=== PATIENT | female | born 1990 | race Caucasian/White ===

== ENCOUNTER 2020-05-13 13:53 | Outpatient (RCR) | payer BC, SELFPAY ==
[2020-05-13 14:05] VITALS: BMI 36.1
[2020-05-13] MEDS: METHOTREXATE SODIUM/PF 50 MG/2 ML VIAL IM ×2 (15:01)
== END 2020-05-23 08:17 | disposition home or self-care (01) ==
LOC: ANHOBOP 13:53
PROVIDERS: Visit Provider Obstetrics & Gynecology
DX: O03.9 Complete or unspecified spontaneous abortion without complication (principal)
CPT/HCPCS: 96372; J9260

== ENCOUNTER 2020-05-25 13:30 | Outpatient (CLI) | payer BC, SELFPAY ==
[2020-05-25 13:58] VITALS: BMI 36.3
[2020-05-25 14:15] LABS: Hematocrit 33.6 % (37.0-47.0); Hemoglobin 11.2 g/dL (12.0-15.0); Mean Corpuscular HGB Conc 33.3 g/dl (32-36); Mean Corpuscular Hemoglobin 28.4 pg (26-34); Mean Corpuscular Volume 85.3 fl (80-100); Mean Platelet Volume 8.5 fl (7.4-10.4); Platelet Count Result 392 k/mm3 (150-375); Red Blood Count 3.94 M/mm3 (4.2-5.4); Red Cell Distribution Width 12.8 % (11.5-14.5); White Blood Count 9.5 K/mm3 (4.5-10.0)
[2020-05-25 14:27] LABS: Alanine Aminotransferase 17 U/L (4-35); Albumin Level 4.2 g/dL (3.5-5.1); Alkaline Phosphatase 65 U/L (38-126); Anion Gap 8 mmol/L (8-16); Aspartate Amino Transferase 18 U/L (14-36); Bilirubin,Total 0.3 mg/dL (0.2-1.3); Blood Urea Nitrogen 8 mg/dL (7-17); Calcium 9.1 mg/dL (8.4-10.2); Carbon Dioxide 28 mmol/L (22-30); Chloride 103 mmol/L (98-107); Estimated CRCL calculation 130 ml/min; Estimated Glomerular Filt Rate > 60; Glucose 104 mg/dL (65-105); Potassium 3.8 mmol/L (3.4-5.0); Sodium 139 mmol/L (137-145)
[2020-05-25] MEDS: METHOTREXATE SODIUM/PF 50 MG/2 ML VIAL IM ×2 (14:58→15:00)
== END 2020-05-25 13:31 | disposition home or self-care (01) ==
PROVIDERS: PCP Family Medicine; Visit Provider Obstetrics & Gynecology
DX: Z34.90 Encounter for supervision of normal pregnancy, unspecified, unspecified trimester (principal); Z3A.00 Weeks of gestation of pregnancy not specified
CPT/HCPCS: 36415; 80053; 85027; 96372; J9260

== ENCOUNTER 2020-05-28 12:00 | Outpatient (CLI) | payer BC, SELFPAY | END 2020-05-28 12:01 | disposition home or self-care (01) | LOC: ANHLAB 12:01 | PROVIDERS: PCP Family Medicine; Visit Provider Obstetrics & Gynecology | DX: O00.90 Unspecified ectopic pregnancy without intrauterine pregnancy (principal); Z3A.00 Weeks of gestation of pregnancy not specified | CPT/HCPCS: 36415; 84702 ==

== ENCOUNTER 2020-05-30 10:38 | Emergency (ER) | payer BC, SELFPAY ==
[2020-05-30] VITALS (13 sets, daily range): BP systolic 93–147; BP diastolic 43–79; PULSE 117; RESP 16; TEMP 36.7; O2SAT 94–100
--- NOTE | ~2020-05-30 | US_ITS ---
EXAMINATION: US pelvic complete w TV EXAM DATE: 05/30/2020 12:25 INDICATION: ectopic , increasing pain/bleeding. Possible ectopic . Known ectopic an d right tube, was treated in April. Now has left-sided pain. TECHNIQUE: Pelvic transabdominal and transvaginal sonogram was performed. There are multiple graysca le and Doppler images available for interpretation. Comparison is made to prior examination from 2012. FINDINGS: Uterus measures 9.8 x 5.1 x 5.6 cm, and is morphologically normal. Endometrial stripe jennifer sures 7 mm, within normal limits. There are nabothian cysts. There is no free pelvic fluid. Right adnexa: The ovary measures 2.3 x 1.8 x 1.9 cm and is morphologically normal. Ovarian vascular f low confirmed. Left adnexa: The ovary measures 3.1 x 1.9 x 2.1 cm and is morphologically normal. Ovarian vascular fl ow confirmed. IMPRESSION: 1. Unremarkable pelvic ultrasound exam. Reviewed, dictated and finalized at location B. L TECHNICIAN
--- NOTE | 2020-05-30 11:13 | ED.ABDPAIN ---
HPI - Abdominal Pain General Chief Complaint: Abdominal Pain Stated Complaint: EPTOPIC PREG FROM OB Time Seen by Provider: 05/30/20 10:49 Source: patient Mode of arrival: ambulatory Limitations: no limitations History of Present Illness HPI narrative: This is a 30 year old about 9 weeks by LMP that presents to the ER for vaginal bleeding and pelvic cramping. Reports she has received methotrexate injections for an ectopic . The last injection was on 05/25. Reports after that she started to have some spotting. Then over last weekend she started to have increasing bleeding. Reports last night and this morning she has had heavy bleeding and is having worsening pelvic pain. Also reports low back pain and pressure. Reports nausea. Denies fever or vomiting. Related Data Home Medications Medication Instructions Recorded Confirmed alprazolam 2 mg PO TID 08/15/19 08/15/19 baclofen 08/15/19 ibuprofen 200 mg PO Q6H PRN 08/15/19 08/15/19 sertraline 150 mg PO DAILY 08/15/19 08/15/19 Allergies Allergy/AdvReac Type Severity Reaction Status Date / Time sumatriptan Allergy Mild unknown Verified 08/15/19 09:55 Review of Systems Review of Systems: Narrative: CONSTITUTIONAL: Denies fever GASTROINTESTINAL: Reports abdominal/pelvic pain, nausea. Denies vomiting All systems reviewed & are unremarkable except as noted in HPI and below PMFSH Past Medical History Medical History (Updated 05/30/20 @ 13:41 by Gail Torres PA-C) Endometriosis Ovarian cyst Surgical History Surgical History (Updated 08/15/19 @ 13:14 by Matilda Mcconnell MD) History of laparoscopy Social History Social History Smoking status: Former smoker Gender identity (if verbalized by the patient): Female Exam Narrative: Exam Narrative: GENERAL: Well-appearing, well-nourished, and in no acute distress. HEAD: Normocephalic, atraumatic. EYES: EOMI. CHEST: Clear to auscultation. No respiratory distress. No wheezes rales or rhonchi HEART: Regular rate and rhythm. No murmur heard. Normal peripheral pulses. ABDOMEN: Soft, nondistended, normal active bowel sounds. Tender to palpation throughout the lower abdomen, without guarding EXTREMITIES: Normal range of motion. No edema. SKIN: Warm, dry, no rash. NEURO: No focal deficits. Alert and oriented x3. PSYCH: Normal mood and affect PELVIC: Normal-appearing cervix. Small amount of bright red blood in the vaginal vault, slowly oozing from cervix Course Vital Signs Vital signs: Vital Signs Temperature 98.0 F 05/30/20 11:05 Pulse Rate 117 H 05/30/20 11:05 Respiratory Rate 16 05/30/20 11:05 Blood Pressure 147/50 H 05/30/20 11:05 Pulse Oximetry 100 05/30/20 11:05 Temperature 98.0 F 05/30/20 11:05 Pulse Rate 117 H 05/30/20 11:05 Respiratory Rate 16 05/30/20 11:05 Blood Pressure 130/79 05/30/20 12:31 Pulse Oximetry 97 05/30/20 12:31 MDM - Abdominal Pain MDM Narrative Medical decision making narrative: Patient presents to the emergency department for pelvic pain and vaginal bleeding. Is currently being treated for an ectopic with methotrexate injections. She is afebrile and nontoxic-appearing. Tachycardic upon arrival, this normalized with IV fluids. Her blood pressure is stable. CBC with mild leukocytosis to 11.3. Her hemoglobin is stable at 11.5. Metabolic panel without concerning findings. Beta hCG is downtrending. Current level is 703.15. Pelvic ultrasound is unremarkable. No abnormal masses noted. Normal ovarian vascular flow. No free fluid in the pelvis. Patient reports improvement with IV Tylenol. Small amount of blood noted on pelvic exam. Patient is O+. Spoke with Dr. Almeida about patient and work-up. Patient is to follow-up in clinic at her next scheduled appointment. Patient is stable and felt appropriate for further outpatient evaluation. She was given warnings to return to the ER
--- NOTE | 2020-05-30 11:15 | PC.NURSE ---
patient here in ED room 11 with c/o vaginal bleeding and cramping. states she is 9 weeks but recently dx with ectopic . see triage notes. alert. oriented. reviewed hx. will start SL and get labs. in room.
[2020-05-30] MEDS: ONDANSETRON INJ 4 MG/2 ML VIAL IV PUSH (11:25)
--- NOTE | 2020-05-30 11:45 | PC.NURSE ---
patient to ultrasound via wheelchair and tech. IV tylenol on hold. zofran given.
[2020-05-30] MEDS: SODIUM CHLORIDE 0.9% IV 1,000 ML 999 ML IV CONT (12:31)
[2020-05-30 12:40] LABS: Basophils Percent Auto 0.4 % (0.2-1.2); Eosinophils Absolute Auto 0.2 K/mm3 (0-0.3); Hematocrit 35.1 % (37.0-47.0); Hemoglobin 11.5 g/dL (12.0-15.0); Immature Granulocyte Absolute 0.03 K/mm3 (0.00-0.031); Immature Granulocyte Percent A 0.3 % (0-0.5); Lymphocytes Absolute Auto 2.71 K/mm3 (0.9-3.2); Lymphocytes Percent Auto 24.1 % (18.3-44.2); Mean Corpuscular HGB Conc 32.8 g/dl (32-36); Mean Corpuscular Hemoglobin 27.8 pg (26-34); Monocytes Absolute Auto 0.4 K/mm3 (0.1-0.6); Monocytes Percent Auto 3.7 % (2.6-8.5); Neutrophils Absolute Auto 7.8 K/mm3 (1.3-6.7); Neutrophils Percent Auto 69.5 % (45.5-73.1); Platelet Count Result 415 k/mm3 (150-375); Red Blood Count 4.13 M/mm3 (4.2-5.4); Red Cell Distribution Width 12.4 % (11.5-14.5); White Blood Count 11.3 K/mm3 (4.5-10.0)
[2020-05-30 12:54] LABS: Alanine Aminotransferase 17 U/L (4-35); Albumin Level 4.3 g/dL (3.5-5.1); Alkaline Phosphatase 85 U/L (38-126); Anion Gap 7 mmol/L (8-16); Aspartate Amino Transferase 21 U/L (14-36); Bilirubin,Total 0.2 mg/dL (0.2-1.3); Blood Urea Nitrogen 9 mg/dL (7-17); Calcium 9.1 mg/dL (8.4-10.2); Carbon Dioxide 28 mmol/L (22-30); Chloride 103 mmol/L (98-107); Estimated CRCL calculation 148 ml/min; Estimated Glomerular Filt Rate > 60; Glucose 95 mg/dL (65-105); Sodium 138 mmol/L (137-145)
[2020-05-30 13:16] LABS: Prothrombin Time 14.2 Seconds (11.1-14.7)
[2020-05-30 13:17] LABS: Partial Thromboplastin Time 30.3 SECONDS (22.3-36.8)
--- NOTE | 2020-06-09 11:44 | PC.NURSE ---
LATE ENTRY This note is being entered to document information to the patient's record. The following information was omitted on [05/30/20], by [Cayla Helton RN]. NS stop time is 1330, Ofimrev stop time is 1245
== END 2020-05-30 13:56 | disposition home or self-care (01) ==
PROVIDERS: Physician Assistant; Emergency Provider Emergency Medicine; PCP Family Medicine
DX: O00.90 Unspecified ectopic pregnancy without intrauterine pregnancy (principal); Z87.891 Personal history of nicotine dependence; N80.9 Endometriosis, unspecified
CPT/HCPCS: 36415; 76830; 76856; 80053; 81025; 84702; 85025; 85461; 85610; 85730; 96361; 96365; 96375; 99284; J0131; J2405; J7030

== ENCOUNTER 2022-12-11 10:32 | Outpatient (CLI) | payer BC, SELFPAY ==
[2022-12-11 11:12] LABS: Hematocrit 36.5 % (37.0-47.0); Hemoglobin 11.8 g/dL (12.0-15.0)
== END 2022-12-11 10:33 | disposition home or self-care (01) ==
LOC: ANHLAB 10:34
PROVIDERS: PCP Family Medicine; Visit Provider Student in an Organized Health Care Education/Training Program
DX: R53.83 Other fatigue (principal)
CPT/HCPCS: 36415; 84443; 85014; 85018

== ENCOUNTER 2023-01-17 01:48 | Day surgery (SDC) | payer BC, SELFPAY ==
--- NOTE | 2023-01-16 09:49 | PM.IMHP ---
H&P: HPI History of Present Illness Date/Time: 01/16/23 09:49 Chief Complaint: pelvic pain ovarian cyst endometriosis Narrative: 32-year-old female who presents for robotic assisted exploratory laparoscopy with right ovarian cystectomy. Patient presented to the office complaining of intense pelvic pain. Patient has a long history of advanced stage endometriosis diagnosed as a teenager. Patient presented with complaints of worsening pain. Repeat ultrasound showed an enlarged right ovarian cyst suspicious for endometrioma. Patient has tried hormonal contraceptive pills in the past. Review of Systems Cardiovascular: Cardiovascular: Denies chest pain, Denies leg edema, Denies palpitations, Denies dyspnea and Denies dyspnea on exertion Respiratory: Respiratory: Denies cough, Denies dyspnea and Denies dyspnea on exertion Gastrointestinal: Gastrointestinal: Denies abdominal pain, Denies constipation, Denies diarrhea, Denies nausea and Denies vomiting Genitourinary: Genitourinary: Denies hematuria, Denies urinary frequency, Denies dysuria, Denies pelvic pain, Denies urinary incontinence and Denies vaginal discharge Neurologic: Reports system reviewed and no additional complaints, except as documented Psychiatric: Psychiatric: Reports no additional psychiatric complaints Endocrine: Endocrine: Denies palpitations PMFSH Past Medical History Medical History Ectopic Endometriosis Ovarian cyst Surgical History Surgical History History of laparoscopy Family History Family History Grandparent Breast cancer Grandparent Breast cancer Social History Social History Smoking packs per day: 0.25 Smoking cigarettes per day: 5.0 Years smoked: 10 Smoking pack-years: 2.50 Smoking status: Current every day smoker Tobacco type: cigarettes Alcohol intake: never Substance use: current Substance use type: marijuana Other substance usage details: ocassional Living arrangements: with family Additional living arrangements comments: 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 Gender identity (if verbalized by the patient): Female Sexual Orientation (if Verbalized by the Patient): Straight or Heterosexual Spiritual care concerns: No Meds Home Medications and Allergies Home Medications Medication Instructions Recorded Confirmed Type alprazolam 2 mg tablet 2 mg PO TID 08/15/19 08/20/22 History venlafaxine 225 mg tablet,extended 225 mg PO DAILY 07/04/22 08/20/22 History release 24 hr L norgest/E estradiol-E estrad 1 tablet PO DAILY #182 ea 08/23/22 08/23/22 Rx 0.15 mg-30 mcg (84)/10 mcg(7) tabs,3mos (Seasonique) elagolix 200 mg tablet (Orilissa) 200 mg PO BID #60 tabs 11/28/22 11/28/22 Rx acetaminophen 300 mg-codeine 30 mg 1 tablet PO Q6H PRN pain #10 tabs 12/25/22 Rx tablet Allergies Allergy/AdvReac Type Severity Reaction Status Date / Time sumatriptan Allergy Mild unknown Verified 11/28/22 10:31 Exam Const: General: no acute distress Eyes: EOM: EOMs intact bilaterally Neck: Neck: supple Thyroid: thyroid normal Chest: Breast/axilla inspection: normal inspection of the breasts Breast/axilla palpation: normal palpation of the breasts, normal palpation of the axillae and no axillary lymphadenopathy Resp: Effort & Inspection: normal respiratory effort Auscultation: clear to auscultation bilaterally Cardio: Rate: regular rate Rhythm: regular rhythm GI: Inspection: non-distended GI Palp: Yes Soft to palpation, No Tenderness to palpation present (GI) and No Guarding due to palpation present (GI) Auscultation: normal bowel sounds : General: No bladder normal to palpation External Fe
[2023-01-16 09:55] VITALS: BMI 33.5
--- NOTE | 2023-01-16 09:56 | PC.NURSE ---
Report to the Outpatient Waiting Room, entrance under the green pavilion located off [facility], at time 1200 on date 01/17/23. Planned Procedure Time: 1400. Time changes happen often and if your time is changed the preop area will call you the afternoon before. - You and your visitor will be asked to self-screen and do not enter if you have any COVID symptoms. - A mask is optional within the hospital at this time. Patients may have clear liquids (water, carbonated beverages, clear teas, apple juice) until 3 hours prior to surgery with a maximum of 20 ounces. - No food from midnight until time of surgery Take the following medications with a SIP of water the morning of surgery: VENLAFAXINE, CONTROL, ALPRAZOLAM IF NEEDED DO NOT STOP ANY OF YOUR OTHER PRESCRIPTION MEDICATIONS PRIOR TO SURGERY ?EXCEPT THE FOLLOWING Medications to discontinue per physician: N/A Date to take last dose: N/A Please no make-up, nail gibraltarian, hairspray, perfume, deodorant, or body powder the day of surgery. No jewelry (including any body piercings) or valuables the day of surgery, leave them at home. Please take a shower or bath the night before, or the morning of, surgery with an antibacterial soap. Wear comfortable, loose fitting clothing. - Jewelry must be removed prior to entering the operating room. Rings and piercings that are not removed may be cut off. - The hospital will not accept responsibility for valuables. - Please leave all valuables, including medications, at home the day of surgery. If you are going home after surgery, a licensed motor vehicle escort driver must drive you home. - NO public transportation without another adult if you receive anesthesia. - We recommend that an adult stay with you for 24 hours following discharge. - We also recommend that you do not drive, make important decision, drink alcoholic beverages, or take any drugs that were not prescribed by your health care provider for at least 24 hours after your discharge time. Follow any additional instructions given to you from your surgeon. If you or anyone in your household have experienced Covid symptoms in the past week, please notify your surgeon or the nurse liaison at the phone number below for possible testing. Telephone instructions given to PT - BRIGIDA MORAES and asked if any additional questions and then verbalized understanding. Patient advised to call surgeon office or pre surgery nurse liaison [phone] if any additional questions.
[2023-01-17] VITALS (8 sets, daily range): BP systolic 129–158; BP diastolic 61–92; PULSE 79–111; RESP 12–18; TEMP 36.6–38.1; O2SAT 94–100
[2023-01-17 12:53] LABS: Hematocrit 39.3 % (37.0-47.0); Hemoglobin 12.9 g/dL (12.0-15.0); Mean Corpuscular HGB Conc 32.8 g/dl (32-36); Mean Corpuscular Hemoglobin 28.1 pg (26-34); Mean Corpuscular Volume 85.6 fl (80-100); Mean Platelet Volume 8.9 fl (7.4-10.4); Platelet Count Result 471 k/mm3 (150-375); Red Blood Count 4.59 M/mm3 (4.2-5.4); Red Cell Distribution Width 13.8 % (11.5-14.5)
[2023-01-17] MEDS: ACETAMINOPHEN 500 MG TABLET 1000 MG PO (12:55)
[2023-01-17] MEDS: KETOROLAC 15 MG/ML VIAL (*BKC) IV PUSH (12:55)
--- NOTE | 2023-01-17 13:33 | WPDANESEPPF ---
Anes - Initial Pre Proc Eval Procedure: Operation Date: 01/17/23 14:00 Proposed Procedures p Robotic Assisted Right Ovarian Cystectomy - David Joyner MD Date/Time: 01/17/23 13:33 Surgeon: David Joyner MD Pre Op Diagnosis: endometrioma Patient Data Age: 32 Gender: F Height: 1.63 m Weight: 84 kg Last Vital Signs Temp 36.6 C 01/17/23 13:01 Pulse 92 01/17/23 13:01 Resp 14 01/17/23 13:01 BP 143/91 H 01/17/23 13:01 Pulse Ox 100 01/17/23 13:01 O2 Del Method Room Air 01/17/23 13:01 Allergies Allergy/AdvReac Type Severity Reaction Status Date / Time sumatriptan Allergy Mild unknown Verified 01/17/23 13:06 Home Medications Medication Instructions Recorded Confirmed Type alprazolam 2 mg tablet 2 mg PO TID 08/15/19 01/16/23 History venlafaxine 225 mg tablet,extended 225 mg PO DAILY 07/04/22 01/17/23 History release 24 hr L norgest/E estradiol-E estrad 1 tablet PO DAILY #182 ea 08/23/22 01/17/23 Rx 0.15 mg-30 mcg (84)/10 mcg(7) tabs,3mos (Seasonique) Tylenol 325 mg PO DAILY 01/17/23 01/17/23 History Laboratory Tests 01/17/23 12:47 WBC 10.0 K/mm3 (4.5-10.0) RBC 4.59 M/mm3 (4.2-5.4) Hgb 12.9 g/dL (12.0-15.0) Hct 39.3 % (37.0-47.0) MCV 85.6 fl (80-100) MCH 28.1 pg (26-34) MCHC 32.8 g/dl (32-36) RDW 13.8 % (11.5-14.5) Plt Count 471 H k/mm3 (150-375) MPV 8.9 fl (7.4-10.4) Patient hx anesthesia problems: none Family hx anesthesia problems: none Results Review: All pre-operative results and documents have been reviewed as part of the pre-operative evaluation. [facility] Past Medical History Medical History Ectopic Endometriosis Ovarian cyst Surgical History Surgical History History of laparoscopy Family History Family History Grandparent Breast cancer Grandparent Breast cancer Social History Social History Smoking packs per day: 0.25 Smoking cigarettes per day: 5.0 Years smoked: 10 Smoking pack-years: 2.50 Smoking status: Current every day smoker Tobacco type: cigarettes Alcohol intake: never Substance use: current Substance use type: marijuana Other substance usage details: ocassional Living arrangements: with family Additional living arrangements comments: 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 Gender identity (if verbalized by the patient): Female Sexual Orientation (if Verbalized by the Patient): Straight or Heterosexual Spiritual care concerns: No Anes - Eval Final PreProcedure Day of Procedure 01/17/23 13:33 Patient weight: obese Heart: regular rate and rhythm Lungs: clear to auscultation Airway: Mallampati scale class II Neurological: alert and oriented Last oral intake: >/= 8 hours ASA classification: II Emergent: no Anesthetic plan: proceed Anesthesia type and monitoring: general ETT and standard monitoring Results Review: All pre-operative results and documents have been reviewed as part of the pre-operative evaluation. Informed Consent: The patient's anesthetic plan and its attendant risks and benefits were discussed with the patient/family/POA. Questions were solicited and answers provided to the satisfaction of the patient/family/POA.
--- NOTE | 2023-01-17 13:53 | WPDHPUPDATE1 ---
History and Physical Update Update Date/Time: 01/17/23 13:53 History and Physical has been reviewed, including an updated exam of the patient. There are NO changes in the patient's condition. Risks, benefits, and alternatives have been discussed and questions answered. Patient agrees to proceed with procedure.
[2023-01-17] MEDS: LIDO 1%/EPINEPHRINE 1:100,000 20 ML VIAL INFILTRATE (15:12)
--- NOTE | 2023-01-17 15:42 | W.PM.PROC2 ---
Procedure Note - Detailed Date of Procedure 01/17/23 Pre-op Diagnosis endometrioma Post-op Diagnosis Same Procedure Performed Diagnostic laparoscopy, robotic assisted right ovarian cystectomy, lysis of adhesions Surgeon David Joyner MD Anesthesia General Indications pelvic pain history of endometriosis, right ovarian cyst, suspicious for endometrial Findings dense adhesive disease in the posterior cul-de-sac, and hence of disease between the bowel omentum and the left lateral pelvic sidewall normal. Fallopian tubes bilaterally, enlarged right ovary with dark blood-filled cyst consistent with endometrioma Description of Procedure After the patient was appropriately consented she was taken to the operating room where she was transferred to the table in a dorsal supine position. General anesthesia was then induced with endotracheal intubation. The patient was transferred to a dorsal lithotomy position using adjustable yellow-fin stirrups. Her position was adjusted for appropriate support of her lower back and lower extremities. The patient was prepped and draped. A transurethral carlos catheter was place. The cervix was visualized and an acorn manipulator was placed. Gloves were changed. After confirmation of a functioning orogastric tube, lidocaine was injected at Carroll's point in the LUQ and a 5mm incision was made. A 5mm Optiview trocar was then inserted into the abdominal cavity under direct visualization and done so without complication. The abdomen was then insufflated with approximately 2-3L of CO2 establishing a pneumoperitoneum and the patient was placed in Trendelenburg position. A pelvic survey was performed and the above findings were noted. Given the degree of adhesive disease, the decision was made to proceed to robotic assisted surgery. Just above the umbilicus in the midline, a 8mm incision made after injection of lidocaine and a 8mm bladeless trocar advanced into the abdominal cavity under direct visualization without incident. We subsequently placed two robotic ports in a similar fashion, one in the left mid-quadrant and one in the right, 10cm lateral to the midline port. The robot was then docked. Attention was turned to the pelvis. the uterus was anteverted to reveal the dense amount of adhesions in the posterior cul-de-sac. Colon was noted to be adherent to the posterior serosa of the uterus. This adhesion was gently taken down with blunt and sharp dissection the right ovary was not visualized. The ovary was adherent and the right ovarian fossa and to the posterior uterine serosa. Adhesions surrounding the ovary were dissected to help free the ovary. During dissection of the ovary, the ovarian cyst was ruptured revealing a dark brown sanguinous fluid. Ovarian cyst was further opened. Fluid was irrigated from the cyst. The cyst bed was identified and the cyst wall was grasped. The cyst wall was removed with gentle pressure at opposite traction. The surgical bed was then made hemostatic with monopolar Cautery. Small amount of adhesions were freed from the left ovary from the posterior uterine serosa to help restore normal anatomy. adhesive disease was noted to be dense and the posterior cul-de-sac near the cervical os. Surgical bed was again re-evaluated and noted to be hemostatic. Several photos were taken of the adhesive disease within the pelvis. Following this dissection, the abdomen and pelvis were copiously irrigated and all surgical sites found to be hemostatic. Skin sites were reapproximated with 4-0 Vicryl in a subcuticular fashion. Steri-Strips were placed. The patient tolerated the procedure well. Sponge, needle and instrument counts were correct x 2 and the patient was taken to recovery in stable condition. The patient had SCD's on for VTE prophylaxis during the entire procedure. Estimated Blood Loss 10 Urine Output 25 Drains No Packing No Pathology Yes ( Ovarian cyst wall) Complications No immediat
[2023-01-17] MEDS: LACTATED RINGERS 1,000 ML 30 ML IV CONT ×2 (15:47→16:05)
[2023-01-17] MEDS: fentaNYL CITRATE INJ (*CRX) 100 MCG/2 ML VIAL 25 MCG IV PUSH ×4 (15:55→16:07)
[2023-01-17] MEDS: oxyCODONE HCL (*CRX) 5 MG TAB IR PO (16:59)
== END 2023-01-17 17:45 | disposition home or self-care (01) ==
PROVIDERS: PCP Family Medicine; Visit Provider Student in an Organized Health Care Education/Training Program
PROC: 8E0W4CZ Robotic Assisted Procedure of Trunk Region, Percutaneous Endoscopic Approach (ICD-10-PCS; CPT 49320; principal; 2023-01-17 14:00)
DX: N83.201 Unspecified ovarian cyst, right side (principal); N73.6 Female pelvic peritoneal adhesions (postinfective); R10.2 Pelvic and perineal pain; F17.210 Nicotine dependence, cigarettes, uncomplicated; F12.90 Cannabis use, unspecified, uncomplicated; E66.9 Obesity, unspecified; Z68.31 Body mass index [BMI] 31.0-31.9, adult; Z87.898 Personal history of other specified conditions
CPT/HCPCS: 58662; S2900; 36415; 85027; 86850; 86900; 86901; 88305; A9270; J0690; J1100; J1170; J1885; J2250; J2405; J2704; J2710; J3010; J7030; J7120

== ENCOUNTER 2024-12-09 10:45 | Outpatient (CLI) | payer OTHER, SELFPAY ==
--- NOTE | ~2024-12-09 | MMUS_ITS ---
EXAMINATION: US breast BI complete, MM diagnostic leonid BI w amy HISTORY: Follow-up breast mass TECHNIQUE: Additional 3-D tomosynthesis images of the breasts were performed and synthetic 2-D images were generated. CAD analysis was submitted and interpreted. High resolution bilateral complete breas t ultrasound was performed. COMPARISON: None Comparison to multiple prior studies sequentially, with oldest reviewed study dated 01/08/2022. BREAST PARENCHYMAL COMPOSITION: Dense: The breasts are heterogeneously dense, which may obscure small masses FINDINGS: MAMMOGRAPHIC FINDINGS: The breasts are stable. No new masses, calcifications or architectural distortion in either breast to suggest malignancy. There is a fat-containing mass in the mid outer aspect of the left breast, middl e third, most likely benign fibroadenolipoma. ULTRASOUND: Complete US of all 4 quadrants of the breast/s and retroareolar region was reviewed. Right breast: There is a right breast cyst at 12:00 near the nipple measuring 1.6 cm. Left breast: At 12:00 near the nipple there is a 7 mm cyst. At 3:00, 4 cm from the nipple there is a complex parallel oriented heterogeneous mass measuring 5.2 x 6 x 1.9 cm, corresponding to the fat-con taining mass seen on mammography. IMPRESSION: 1. 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 No evidence for malignancy in the right breast. 2. Recommend 6 month follow-up Limited left breast ultrasound. BI-RADS category 3, probably benign findings. Reviewed, dictated and finalized at location A. IMPRESSION: 1. 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 No evidence for malignancy in the right breast. 2. Recommend 6 month follow-up Limited left breast ultrasound. BI-RADS category 3, probably benign findings.
--- OUTSIDE RECORDS SUMMARY | 2024-12-09 11:05 | XMS_ITS | Encounter Summary ---
Author Organization [facility] Address [address] [place] [address] Phone Care Team Providers Care Attendance Secretary Name Role Phone Tessie Short MD Primary Care Provider + Encounter Details Date Type Department Care Team (Late st Contact Info) Description 02/29/2020 Telephone [facility] [address] [place] [address] [facility] 5[address] [place] [address] [place] [address] Yue aJcobs Social History Tobacco Use Types Packs/Day Years Used Date Smoking Tobacco: Former Cigarettes Q uit: 07/2018 Smokeless Tobacco: Never Alcohol Use Standard Drinks/Week Comments Not Currently 0 (1 standard drink = 0.6 oz pur e alcohol) Comments No Sex and Gender Information Value Date Recorded Sex Assigned at Not on file 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
--- OUTSIDE RECORDS SUMMARY | 2024-12-09 11:05 | XMS_ITS | Referral Summary ---
Author Organization [facility] Address [address] [place] [address] Care Team Providers Care Burial Agent Name Role Phone Tessie Short MD Primary Care Provider + Allergies Active Allergy Reactions Criticality Noted Date Comments Sumatriptan Other (See comments) Low 02/27/2019 Medications ALPRAZolam (XANAX) 2 mg tablet Take 1 tablet (2 mg total) by mouth nightly as needed for anxiety Active ondansetron ODT (ZOFRAN-ODT) 4 mg disintegrating tablet Dissolve 1 tablet for mild to moderate nausea or vomiting or 2 tablets for severe nausea or vomiting oral twice a day as needed. 15 tablet 04/03/20 18 Active Additional Information Patient not taking.Reported on 02/27/2019 albuterol HFA (PROVENTIL HFA,VENTOLIN HFA,PROAIR HFA) 90 mcg/actuation inhaler TAKE 2 PUFFS BY MOUTH EVERY 4 HOURS 11 02/13/20 19 Active traMADoL (ULTRAM) 50 mg tablet 0 08/27/19 20 Active sertraline (ZOLOFT) 100 mg tablet TAKE 1 AND 1/2 TABLETS BY MOUTH ONCE DAILY 09/05/19 20 Active acetaminophen-code ine (TYLENOL with CODEINE #3) 300-30 mg per tablet acetaminophen 300 mg-codeine 30 mg tablet Active ibuprofen (ADVIL,MOTRIN) 800 mg tablet Take 1 tablet (800 mg total) by mouth every 6 (six) hours as needed for pain Active DULoxetine DR (CYMBALTA) 30 mg capsule Take by mouth daily 09/29/19 Active acetaminophen 500 mg capsule Take 2 capsules (1,000 mg total) by mouth every 6 (six) hours as needed for mild pain (pain scale 1-4) Active Active Problems Problem Noted Date Diagnosed Date Stress incontinence, female 10/26/2022 Overview (10/26/2022): Reports leaking of urine with cough, laugh, sneeze Consider UG referral +/- sling at time of surgery Pelvic floor dysfunction in female 10/26/2022 Overview (10/26/2022): 10/26/22: Severe PFMD on exam (bilateral OI and LA) that reproduces some of patient's pain, but not all Plan - Vaginal icing, referral to PFPT, and robaxin as per endo plan Abnormal uterine bleeding 10/05/2016 Endometriosis 10/05/2016 Overview (11/02/2022): Images from the original note were not included. History - Diagnosed with endometriosis in 2008 at [facility] by Dx lsc and treated with course of Lupron - MRI Pelvis 2016: No pelvic endo seen, small para-ovarian cyst and ?cervical adenomyoma - Presenting with severe dysmenorrhea, dyspareunia, and dyschezia since 2019 and getting worse - Reports US with primary DIRECTOR CLINICAL PHARMACOLOGY showing chocolate cyst on right ovary, referred to [facility] given anticipated surgical complexity and insurance change - Desiring surgical management, no plans for future fertiltiy but not ready for BSO - Current regimen: COCs (Seasonique) Records Review 10/26/22: Severe PFMD on exam. Patient with voluntary guarding and unable to assess mobility of pelvic structures. Adnexal mass not palpable. No CMT. Rectovaginal septum clear. Given report of severe dyschezia, suspicion high for rectal endometriosis given history as above. Recommend referral to [facility] when insurance active. Plan - Agree with continuous COCs - Add robaxin for pelvic pain control - Re-refer to PFPT, add vaginal icing - Request outside records from: [facility] (op note), Dr. Joyner (pelvic US), PCP (pap smear) - Defer additional imaging at this time given patient is uninsured, will obtain with financial assistance or insurance is active - Patient will call clinic with insurance active, and will refer to [facility] for surgical consultation at that time Social History Tobacco Use Types Packs/Day Years Used Date Smoking Tobacco: Former Cigarettes Q uit: 07/2018 Smokeless Tobacco: Never Alcohol Use Standard Drinks/Week Comments Not Currently 0 (1 standard drink = 0.6 oz pur e alcohol) AUDIT-C Answer Date Recorded Q1: How often do you have a drink containing alcohol? Never 10/26/2022 Q2: How many drinks containi ng alcohol do you have on a typical day when you are drinking? Patient does not drink Q3: How often do you have si x or more drinks on one occasion? Never 10/26/2022 Hunger Vital Sign Answer Date Recorded Within the past 12 months, y ou worried that your food would run out before you got the money to buy more. Never true 10/27/19 23 Within the past 12 months, t he food you bought just didn't last and you didn't have money to get more. 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[employer] Gender Identity Not on file Sexual Orientation Not on file Last Filed Vital Signs Vital Sign Reading Time Taken Comments Blood Pressure 149/79 10/26/2022 10:14 AM CDT Pulse 91 10/26/2022 10:14 AM CDT Temperature 36.6 C (97.9 F) 10/26/2022 10:14 AM CDT Respiratory Rate 18 10/26/2022 10:14 AM CDT Oxygen Saturation 98% 10/26/2022 10:14 AM CDT Inhaled Oxygen Concentration - - Weight 88 kg (194 lb) 10/26/2022 10:14 AM CDT Height 162.6 cm (5' 4 ) 10/26/2022 10:14 AM CDT Body Mass Index 33.3 10/26/2022 10:14 AM CDT Plan of Treatment Not on file Insurance [facility] CHOICE PLUS [facility] H[facility]/PPO Address: [address] [address] [place] [address] [employer] OPEN ACCESS [employer] PPO POS Care Teams Burial Agent Relationship Specialty Start Date End Date Tessie Short MD PCP - General 04/03/18
--- OUTSIDE RECORDS SUMMARY | 2024-12-09 11:05 | XMS_ITS | Encounter Summary ---
Author Organization [facility] Address [address] [place] [address] Care Team Providers Care Wrapper Stemmer Hand Name Role Phone Charla Amezquita PA-C Primary Care Provider [phone] Tessie Short MD Primary Care Provider [phone] Reason for Visit * Reason Onset Date Comments Health Information 05/08/2023 Encounter Details Date Type Department Care Team (Late st Contact Info) Description 05/08/2023 Telephone [facility] - CRIME ANALYST [address] [place] [address] Kelly French MD [address] [facility] [address] [place] [address] Health Information Social History Tobacco Use Types Packs/Day Years Used Date Smoking Tobacco: Former Smokeless Tobacco: Never Comments No Sex and Gender Information Value Date Recorded Sex Assigned at Not on file Legal Sex Female 4:29 PM CDT Gender Identity Not on file Sexual Orientation Not on file documented as of this encounter Miscellaneous Notes * Telephone Encounter - Sommer Spicer RN - 05/08/2023 1:23 PM CDT RN returned call to [facility]. RN spoke to Dana. Dr. Joyner and office. They referred pt to our office in January and they need OV notes to tie to that referral. RN faxed as requested * Telephone Encounter - Liset Daniels - 05/08/2023 12:57 PM CDT Dana from Dr Barcenas called because they are wanting the patient consult notes so they can tie itto the referral. Thank you Liset CB: [phone] documented in this encounter Plan of Treatment Not on file documented as of this encounter Visit Diagnoses Not on filedocumented in this encounter Care Teams Wrapper Stemmer Hand Relationship Specialty Start Date End Date Charla Amezquita PA-C [address] [place] [address] PCP - General Physician Veterinary Practitioner 03/07/23 09/26/23 Tessie Short MD [address] [place] [phone] PCP - General Family Medicine 09/27/23 documented as of this encounter
--- OUTSIDE RECORDS SUMMARY | 2024-12-09 11:05 | XMS_ITS | Encounter Summary ---
Author Organization [facility] Address [address] [place] [address] Care Team Providers Care Summer Child Caregiver Name Role Phone Tessie Short MD Primary Care Provider [phone] Reason for Visit * Reason Onset Date Comments Med Question 12/25/2023 Encounter Details Date Type Department Care Team (Late st Contact Info) Description 12/25/2023 Telephone [facility] - ANNEALING TORCH OPERATOR [address] [facility] [address] [place] [address] Adriana Valentino Med Question Social History Tobacco Use Types Packs/Day Years Used Date Smoking Tobacco: Some Days Cigarettes Smokeless Tobacco: Never Alcohol Use Standard Drinks/Week Comments Not Currently 0 (1 standard drink = 0.6 oz pur e alcohol) AUDIT-C Answer Date Recorded Q1: How often do you have a drink containing alcohol? Never 12/24/2023 Q2: How many drinks containi ng alcohol do you have on a typical day when you are drinking? Patient does not drink Q3: How often do you have si x or more drinks on one occasion? Never 12/24/2023 Comments No Sex and Gender Information Value Date Recorded Sex Assigned at Not on file Legal Sex Female 4:29 PM CDT Gender Identity Not on file Sexual Orientation Not on file documented as of this encounter Miscellaneous Notes * Telephone Encounter - Sommer Spicer RN - 12/25/2023 12:08 PM CDT RN called pt to see if she picked up meds. Pt said she called them and they are getting ready for her now. She will call RN back if any issues * Telephone Encounter - Sommer Spicer RN - 12/25/2023 9:55 AM CDT RN called [facility] and spoke to tech. Per tech the oxycodone rx was sent yesterday. She is unsure why is wasn't filled. They will work on this now and will be ready in hour and half RN called pt to make aware. * Telephone Encounter - Adriana Valentino - 12/25/2023 9:32 AM CDT PT called stating that she did not get her Oxycodone RX called into the pharmacy. She double checked with the pharmacy this am and it is not their system. C/B [phone] documented in this encounter Plan of Treatment Not on file documented as of this encounter Visit Diagnoses Not on filedocumented in this encounter Care Teams Summer Child Caregiver Relationship Specialty Start Date End Date Tessie Short MD [address] [place] [id number] PCP - General Family Medicine 09/27/23 documented as of this encounter
--- OUTSIDE RECORDS SUMMARY | 2024-12-09 11:05 | XMS_ITS | Clinical Summary ---
Author Organization [facility] Address [address] [place] [address] Care Team Providers Care Chief Meteorologist Name Role Phone Tessie Short MD Primary Care Provider [phone] Source Comments [facility],non-owned Affiliates and Associated Physician Practices is amultiple site organization consisting of ambulatory clinics and hospital sitesin [place], [place], [place] and [place]. This disclosure is being madepursuant to the Care Everywhere program and may not contain all information available regarding this patient. Last updated 18.[facility] Allergies Active Allergy Reactions Criticality Noted Date Comments Sumatriptan Palpitations 04/24/2023 Medications * Be aware that medications may not be up to date on this document. Alwaysverify current medications with the patient. venlafaxine XR 24hr (Effexor XR) 150 MG capsule TAKE 1 CAPSULE BY MOUTH EVERY DAY ALONG WITH 75MG CAPSULE 04/03/2023 Active venlafaxine XR 24hr (Effexor XR) 75 MG capsule TAKE ONE CAPSULE BY MOUTH EVERY DAY WITH 150MG 03/29/2023 Active ALPRAZolam (Xanax) 2 MG tablet Take 1 (one) tablet by mouth 3 times daily as needed Active hydrOXYzine HCl (Atarax) 50 MG tablet Take 1 (one) tablet by mouth 3 times daily 06/27/2023 Active meloxicam (Mobic) 7.5 MG tablet Take 1 (one) tablet by mouth once daily 30 tablet 11 09/27/2023 Active Simpesse 0.15-0.03 &0.01 MG tabletIndication s:Endometriosis Take 1 (one) tablet by mouth once daily 84 tablet 12/17/2023 Active oxyCODONE, immediate release, (Roxicodone) 5 MG tabletIndication s:Pelvic floor dysfunction in female Take 1 (one) tablet by mouth every 4 hours as needed for Pain 12 tablet 12/24/2023 Active ketorolac (Toradol) 10 MG tablet Take 1 (one) tablet by mouth every 8 hours as needed for Pain 15 tablet 02/19/2024 Active methocarbamol (Robaxin) 500 MG tablet Take 2 (two) tablets by mouth every 8 hours as needed for Muscle Spasms 30 tablet 2 07/15/2024 Active Active Problems Problem Noted Date Diagnosed Date Pelvic floor dysfunction in female 10/26/2022 09/27/2023 Overview (09/27/2023): 10/26/22: Severe PFMD on exam (bilateral OI and LA) that reproduces some of patient's pain, but not all Plan - Vaginal icing, referral to PFPT, and robaxin as per endo plan Stress incontinence, female 10/26/2022 03/0 07/2023 Overview (09/27/2023): Reports leaking of urine with cough, laugh, sneeze Consider UG referral +/- sling at time of surgery Abnormal uterine bleeding 10/05/20162023 Endometriosis 10/05/2016 09/27/2023 Overview (09/27/2023): Images from the original note were not included. History - Diagnosed with endometriosis in 2008 at [facility] by Dx lsc and treated with course of Lupron - MRI Pelvis 2017: No pelvic endo seen, small para-ovarian cyst and ?cervical adenomyoma - Presenting with severe dysmenorrhea, dyspareunia, and dyschezia since 2019 and getting worse - Reports US with primary BRICK CARRIER showing chocolate cyst on right ovary, referred to [facility] given anticipated surgical complexity and insurance change [...] given history as above. Recommend referral to [facility] when insurance active. Plan - Agree with continuous COCs - Add robaxin for pelvic pain control - Re-refer to PFPT, add vaginal icing - Request outside records from: [facility] (op note), Dr. Joyner (pelvic US), PCP (pap smear) - Defer additional imaging at this time given patient is uninsured, will obtain with financial assistance or insurance is active - Patient will call clinic with insurance active, and will refer to [facility] for surgical consultation at that time Immunizations Immunization Administration Dates Next Due FLU VACCINE TRI IIV3 SPLIT IM (FLUVIRIN) 015 INFLUENZA VACCINE, QUADR. (A FLURIA, FLUZONE QUADRIVALENT; 6MO+) (IIV4) 06/25/2016,05/29/2016 Social History Tobacco Use Types Packs/Day Years Used Date Smoking Tobacco: Some Days Cigarettes Smokeless Tobacco: Never Tobacco Cessation:Ready to Q uit: Not Asked; Counseling Given: Not Answered Alcohol Use Standard Drinks/Week Comments Not Currently 0 (1 standard drink = 0.6 oz pur e alcohol) AUDIT-C Answer Date Recorded Q1: How often do you have a drink containing alcohol? Never 03/15/2024 Q2: How many drinks containi ng alcohol do you have on a typical day when you are drinking? Patient does not drink Q3: How often do you have si x or more drinks on one occasion? Never 03/15/2024 PHQ-2 Answer Date Recorded Patient Health Questionnaire-2 Score 3 01/07/2024 Comments No Sex and Gender Information Value Date Recorded Sex Assigned at Not on file Legal Sex Female 4:29 PM CDT Gender Identity Not on file Sexual Orientation Not on file Last Filed Vital Signs Vital Sign Reading Time Taken Comments Blood Pressure 118/78 03/19/2024 2:43 PM CDT Pulse 93 03/15/2024 8:47 AM CDT Temperature 37.3 C (99.1 F) 03/15/2024 8:47 AM CDT Respiratory Rate 14 03/15/2024 11:18 AM CDT Oxygen Saturation 99% 03/15/2024 11:18 AM CDT Inhaled Oxygen Concentration - - Weight 86.6 kg (191 lb) 03/19/2024 2:43 PM CDT Height 162.6 cm (5' 4 ) 03/23/2024 11:38 AM CDT Body Mass Index 32.79 03/19/2024 2:43 PM CDT Plan of Treatment Health Maintenance Due Date Last Done Comments HIV SCREENING 02/09/2004 HEPATITIS C SCREENING 02/04/2007 DTAP/TDAP/TD VACCINES (1 - Tdap) 02/09/2008 HEPATITIS B VACCINE (1 of 3 - 19+ 3-dose series) 02/09/2008 PNEUMOCOCCAL VACCINE (1 of 2 - PCV) 02/09/2008 COVID-19 VACCINE (4 - 2023-2 5 season) 2024 09/11/2021, 12/27/2020, 12/06/2020 DEPRESSION SCREENING 07/29/2024 INFLUENZA VACCINE (Season Ended) 2025 06/25/2016, 05/29/2016, 08/13/2014 ZOSTER VACCINE (1 of 2) 2039 HIB VACCINE Aged Out No longer eligi ble based on patient's age to complete this topic HPV VACCINE Aged Out No longer eligi ble based on patient's age to complete this topic MENINGOCOCCAL (Group B) VACCINE SHARED DECISION-MAKING Aged Out No longer eligible based on patient's age to complete this topic MENINGOCOCCAL GROUPS A/C/Y/W VACCINE Aged Out No longer eligible b ased on patient's age to complete this topic Insurance MEDICAID - [place] Care Teams Chief Meteorologist Relationship Specialty Start Date End Date Tessie Short MD [address] [place] [id number] PCP - General Family Medicine 09/27/23
--- OUTSIDE RECORDS SUMMARY | 2024-12-09 11:05 | XMS_ITS | Encounter Summary ---
Author Organization [facility] Address [address] [place] [address] Phone Care Team Providers Care Entry Level Truck Driver Name Role Phone Tessie Short MD Primary Care Provider + Encounter Details Date Type Department Care Team (Late st Contact Info) Description 03/07/2020 Telephone [facility] Surgery [address] [place] [address] [facility] 5[address] [place] [address] [place] [address] Yue Jacobs Social History Tobacco Use Types Packs/Day Years Used Date Smoking Tobacco: Former Cigarettes Q uit: 07/2018 Smokeless Tobacco: Never Alcohol Use Standard Drinks/Week Comments Not Currently 0 (1 standard drink = 0.6 oz pur e alcohol) Comments No Sex and Gender Information Value Date Recorded Sex Assigned at Not on file 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
--- OUTSIDE RECORDS SUMMARY | 2024-12-09 11:05 | XMS_ITS | Clinical Summary ---
Author Organization [facility] Address [address] [place] [address] Care Team Providers Care Paint Grinder Name Role Phone Tessie Short MD Primary [...] - Diagnosed with endometriosis in 2008 at [facility] by Dx lsc and treated with course of Lupron - MRI Pelvis 2016: No pelvic endo seen, small para-ovarian cyst and ?cervical adenomyoma - Presenting with severe dysmenorrhea, dyspareunia, and dyschezia since 2019 and getting worse - Reports US with primary NUCLEAR CHEMISTRY TECHNICIAN showing chocolate cyst on right ovary, referred to [facility] given anticipated surgical complexity and insurance change [...] vaginal icing - Request outside records from: [facility] (op note), Dr. Joyner (pelvic US), PCP (pap smear) - Defer additional imaging at this time given patient is uninsured, will obtain with financial assistance or insurance is active - Patient will call clinic with insurance active, and will refer to [facility] for surgical consultation at that time Surgical History Surgery Date Site/Laterality Comments LAPAROSCOPY FOR ECTOPIC 07/29/2019 - 07/28/2020 Left Reports ruptured left ectopic s/p laparoscopy DIAGNOSTIC LAPAROSCOPY 07/29/2008 - 07/28/2009 At [facility], reports was told she had diffuse endo on colon, bladder, etc. but endo resection not performed Medical History Medical History Date Comments Endometriosis DANK (generalized anxiety disorder) Family History Medical History Relation Name Comments Cancer Father's Brother Cancer Father's Sister Cancer Maternal Grandmother Cystic fibrosis Maternal Grandmother Endometriosis Maternal Grandmother Gallbladder disease Maternal Grandmother Glaucoma Maternal Grandmother Hypertension Maternal Grandmother Cystic fibrosis Mother Endometriosis Mother Heart disease Mother Diabetes Other maternal side Heart disease Other paternal side of faiily Mental illness Other maternal and paternal sides Obesity Other maternal and pa ternal sides of family Cancer Paternal Grandmother Relation Name Status Comments Father's Brother Father's Sister Maternal Grandmother Mother Other Paternal Grandmother Social History Tobacco Use Types Packs/Day Years [...] on file Legal Sex 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 Gender Identity Not on file Sexual Orientation Not on file Obstetrics History Para Term AB IAB SAB Ectopic Multiple Livin g Live Births 3 1 1 2 1 1 1 1 Date Outcome GA Total Labor Labor/2nd/3rd Weight Sex Type Anes PTL Yuridia A1 A5 Name Clin 2012 Term Vag-Sp ont Livin g Complications:Pre eclampsia 2018 SAB SAB 2019 Ectopic ECTOPI C Comments Patient reports multiple ch emical pregnancies as well, but did not require treatment Last Filed Vital Signs Vital Sign Reading [...] 10/26/2022 10:14 AM CDT Plan of Treatment Health Maintenance Due Date Last Done Comments Cervical Cancer Screening 1989 Depression Screening 1989 Hepatitis C Screening 1989 DTaP/Tdap/Td Vaccine (1 - Tdap) 02/09/2000 Varicella Vaccines (1 of 2 - 13+ 2-dose series) 2002 Hepatitis B Screening 2007 Regular Well Visit/Exam 18-64 2007 Influenza Vaccine (Season Ended) 2025 06/25/2016, 05/29/2016, 08/13/2014 HPV Vaccines Aged Out No longer eligi ble based on patient's age to complete this topic Pneumococcal vaccine <65 Aged Out No longer eligible based on patient's age to complete this topic Insurance [facility] CHOICE PLUS [employer] OPEN ACCESS [employer] PPO POS Care Teams Paint Grinder Relationship Specialty Start Date End Date Tessie Short MD PCP - General 04/03/18
--- OUTSIDE RECORDS SUMMARY | 2024-12-09 11:05 | XMS_ITS | Encounter Summary ---
Author Organization [facility] Address [address] [place] [address] Care Team Providers Care Foot Specialist Name Role Phone Charla Amezquita PA-C Primary Care Provider [phone] Tessie Short MD Primary Care Provider [phone] Reason for Visit * Reason Onset Date Comments Question 04/30/2023 Encounter Details Date Type Department Care Team (Late st Contact Info) Description 04/30/2023 Telephone [facility] FLOOR [address] [facility] [address] [place] [address] Kelly French MD [address] [facility] [address] [place] [address] Question Social History Tobacco Use Types Packs/Day Years Used Date Smoking Tobacco: Former Smokeless Tobacco: Never Comments No Sex and Gender Information Value Date Recorded Sex Assigned at Not on file Legal Sex Female 4:29 PM CDT Gender Identity Not on file Sexual Orientation Not on file documented as of this encounter Miscellaneous Notes * Telephone Encounter - Michelle Ann RN - 04/30/2023 9:46 AM CDT RN attempted to return patient call. No answer, left VM. RN can see that we received a botox denialon 04/26, appeal information was faxed on 04/29, will send message to patient. * Telephone Encounter - AlokNeptalita - 04/30/2023 9:33 AM CDT Pt says she got approval call from her insurance co regarding botox but received a call form us saying that she was denied Please conform this with pt CB# [phone] documented in this encounter Plan of Treatment Not on file documented as of this encounter Visit Diagnoses Not on filedocumented in this encounter Care Teams Foot Specialist Relationship Specialty Start Date End Date Charla Amezquita PA-C [address] [place] [phone] PCP - General Physician Supervisor [employer] 03/07/23 09/26/23 Tessie Short MD [address] [place] [phone] PCP - General Family Medicine 09/27/23 documented as of this encounter
--- OUTSIDE RECORDS SUMMARY | 2024-12-09 11:05 | XMS_ITS | Encounter Summary ---
Author Organization [facility] Address [address] [place] [address] Care Team Providers Care City Recorder Name Role Phone Charla Amezquita PA-C Primary Care Provider [phone] Tessie Short MD Primary Care Provider [phone] Reason for Visit * Reason Onset Date Comments Medication Clarification 05/15/2023 Encounter Details Date Type Department Care Team (Late st Contact Info) Description 05/15/2023 Telephone [facility] - SCREW MACHINE REPAIRER [address] [place] [address] Kelly French MD [address] [address] Medication Clarification Social History Tobacco Use Types Packs/Day Years Used Date Smoking Tobacco: Former Smokeless Tobacco: Never Comments No Sex and Gender Information Value Date Recorded Sex Assigned at Not on file Legal Sex Female 4:29 PM CDT Gender Identity Not on file Sexual Orientation Not on file documented as of this encounter Miscellaneous Notes * Telephone Encounter - Sommer Spicer RN - 05/15/2023 12:47 PM CDT RN called pt. No answer, left VM appeal sent 04/29 and insurance asks for 20 business days to make adecision * Telephone Encounter - Sommer Spicer RN - 05/15/2023 12:20 PM CDT No update on appeal. Per PA denial letter once appeal received the ask for 20 business days to makea decision. Appeal was sent 04/29/23. RN called pt,MIHAI full. RN sent mychart * Telephone Encounter - Lacy Curran - 05/15/2023 11:42 AM CDT Pt wants to know if there is any update for pre-auth of Rx botox documented in this encounter Plan of Treatment Not on file documented as of this encounter Visit Diagnoses Not on filedocumented in this encounter Care Teams City Recorder Relationship Specialty Start Date End Date Charla Amezquita PA-C [address] [place] [address] PCP - General Physician Roving Weight Gauger 03/07/23 09/26/23 Tessie Short MD [address] [place] [address] PCP - General Family Medicine 09/27/23 documented as of this encounter
--- OUTSIDE RECORDS SUMMARY | 2024-12-09 11:05 | XMS_ITS | Encounter Summary ---
Author Organization [facility] Address [address] [facility] [place] [address] Care Team Providers Care Java J2Ee Application Developer Name Role Phone Tessie Short MD Primary Care Provider [phone] Reason for Visit * Reason Onset Date Comments Results 12/18/2023 Encounter Details Date Type Department Care Team (Late st Contact Info) Description 12/18/2023 Telephone [facility] - LIBRARIAN HELPER [address] [place] [address] Kelly French MD [address] [address] Results Social History Tobacco Use Types Packs/Day Years [...] Telephone Encounter - Sommer Spicer RN - 12/18/2023 12:10 PM CDT Pt made aware Dr. French not concerned with platelets, ok to proceed with surgery RN called pt and made aware * Telephone Encounter - Sommer Spicer RN - 12/18/2023 11:35 AM CDT RN returned call to pt. Pt had pre op labs done 12/10/23 Out of range Glucose 121 Platlets 421 Pt wanting to go over these results. Pt said she was not fasting for blood work. RN went over most likely why glucose out of range. Pt googled about platlets and concerned since she is having surgerynext week. Pt results 421. Reference range (150-420) RN will send to Dr. French to advise * Telephone Encounter - Sophia Dunlap - 12/18/2023 11:11 AM CDT Good morning, Patient of Dr. Kelly French's calling today. She kindly asks if the nurse could please give her a call today to discuss her recent test results. She notes that she had high platelets and glucose results. CB: [phone] Thank you so much documented in this encounter Plan of Treatment Not on file documented as of this encounter Visit Diagnoses Not on filedocumented in this encounter Care Teams Java J2Ee Application Developer Relationship Specialty Start Date End Date Tessie Short MD [address] [place] [address] SHORTY Short [id number] PCP - General Family Medicine 09/27/23 documented as of this encounter
--- OUTSIDE RECORDS SUMMARY | 2024-12-09 11:05 | XMS_ITS | Encounter Summary ---
Author Organization [facility] Address [address] [facility] [place] [address] Care Team Providers Care Panel Lay Up Worker Name Role Phone Tessie Short MD Primary Care Provider [phone] Reason for Visit * Reason Onset Date Comments Results 10/29/2023 Encounter Details Date Type Department Care Team (Late st Contact Info) Description 10/29/2023 Telephone [facility] - VOCATIONAL COUNSELOR [address] [facility] [address] [place] [address] Kelly French MD [address] [facility] [address] [place] [address] Results Social History Tobacco Use Types Packs/Day Years Used Date Smoking Tobacco: Former Cigarettes Smokeless Tobacco: Never Alcohol Use Standard Drinks/Week Comments Not Currently 0 (1 standard drink = 0.6 oz pur e alcohol) Comments No Sex and Gender Information Value Date Recorded Sex Assigned at Not on file Legal Sex Female 4:29 PM CDT Gender Identity Not on file Sexual Orientation Not on file documented as of this encounter Miscellaneous Notes * Telephone Encounter - Shruti Alvarez RN - 10/29/2023 12:02 PM CDT RN will send pathology results to Dr. French to advise. * Telephone Encounter - Liset Daniels - 10/29/2023 11:50 AM CDT Patient called in because she would like to go over her results she doesn't understand the on mychart. Thank You Liset CB: [phone] documented in this encounter Plan of Treatment Not on file documented as of this encounter Visit Diagnoses Not on filedocumented in this encounter Care Teams Panel Lay Up Worker Relationship Specialty Start Date End Date Tessie Short MD [address] [place] [address] [place] [phone] PCP - General Family Medicine 09/27/23 documented as of this encounter
--- OUTSIDE RECORDS SUMMARY | 2024-12-09 11:06 | XMS_ITS | CONTINUITY OF CARE DOCUMENT ---
Author Name sarkis dockery Address Unknown Organization [facility] Address [address] [place] [address] [address] [place] [address] Phone [phone] Care Team Providers Care Bolt Header Name Role Phone Luanne PADILLA, Evy Oleary Unavailable AYLIN MCLAIN MD Unavailable AYLIN MCLAIN MD Unavailable PROBLEMS Condition Status Date Provider Notes Palpitations active Mary Kay Telles INSURANCE PROVIDERS Payer name Policy type / Coverage type [place] [employer] [place] [employer] Medicaid [id number] HISTORY OF PROCEDURES Procedure Date Procedure Name Provider Procedure Notes S tatus Event Monitor Evy Stroud MD co mpleted
--- OUTSIDE RECORDS SUMMARY | 2024-12-09 11:06 | XMS_ITS | Encounter Summary ---
Author Organization [facility] Address [address] [facility] [place] [address] Care Team Providers Care Cad Engineer Name Role Phone Tessie Short MD Primary Care Provider [phone] Reason for Visit * Reason Onset Date Comments Pain 02/17/2024 Encounter Details Date Type Department Care Team (Late st Contact Info) Description 02/17/2024 Telephone [facility] - DOT COMPLIANCE SPECIALIST [address] [facility] [address] [place] [address] Kelly French MD [address] [facility] [address] [place] [address] Pain Social History Tobacco Use Types Packs/Day Years [...] more drinks on one occasion? Never 12/24/2023 PHQ-2 Answer Date Recorded Patient Health Questionnaire-2 Score 3 01/07/2024 Comments No Sex and Gender Information Value Date Recorded Sex Assigned at Not on file Legal Sex Female 4:29 PM CDT Gender Identity Not on file Sexual Orientation Not on file documented as of this encounter Miscellaneous Notes * Telephone Encounter - Sommer Spicer RN - 02/17/2024 11:26 AM CDT RN spoke to Dr. French. Ok to refill Robaxin. RN sent to preferred pharmacy. RN called pt with recommendation to take robaxin as well as directions. Pt agreeable with plan. ER precautions reviewed MEDICATION FILLED PER PROTOCOL Disposition of prescription: e-prescribed to preferred pharmacy Response to patient: Response by phone * Telephone Encounter - Sommer Spicer RN - 02/17/2024 9:45 AM CDT RN called pt. Pt said she is having contraction like pain Pt did work this weekend and did a double shift. Pt cramping now. Pt said she is not bleeding but with this pain feels like she should be. Pt taking tylenol and motrin without relief. Pain radiating into hips and upper thighs. Pt thinks she may have over done it this weekend. Pt still taking Simpesse. No missed or late doses. Pt will rest and try heating pad. RN will discuss with Dr. French and return call to pt * Telephone Encounter - Adriana Valentino - 02/17/2024 9:31 AM CDT PT calling as she is having contraction like pain. Worked on Saturday, Saturday and Saturday (double shift). Works in a restaurant. Pain is in pelvic area and upper thighs. Feels like an Endo flare up, but know that she got most ofit during surgery. Is worried that she may have worked to hard but wanted to check in with Dr. French. PT is scheduled tostart pelvic floor therapy. Has been taking her BC, tylenol and ibuprofen with little relief. Scheduled to work again on Saturday. C/B [phone] documented in this encounter Plan of Treatment Not on file documented as of this encounter Visit Diagnoses Not on filedocumented in this encounter Care Teams Cad Engineer Relationship Specialty Start Date End Date Tessie Short MD [address] [place] [address] [place] [phone] PCP - General Family Medicine 09/27/23 documented as of this encounter
--- OUTSIDE RECORDS SUMMARY | 2024-12-09 11:06 | XMS_ITS | Data Portability ---
Author Organization [facility] [place], Main Office Address [address] [place] [address] Assessment No assessment recorded. Plan of Treatment Reminders Order Date Submit Date Provider Last Modified By Organization Details Last Modified Time Details Appointments Follow Up 15 2024 02:00P Marlena Tirado NP Not available Not available Not available Lab CBC w/ auto diff 2024 025 [facility] (Lab), [address] [place], [address], 12/02/2024 12:19:52 lipid panel, serum 2024 025 [facility] (Lab), [address] [place], [address], 12/02/2024 12:19:49 progester one, serum 2024 025 [facility] (Lab), [address] [place], [address], 12/02/2024 12:19:56 prolactin , serum 2024 025 [facility] (Lab), [address] [place], [address], 12/02/2024 12:19:57 lh (luteiniz ing hormone), serum 2024 025 [facility] (Lab), [address] [place], [address], 12/02/2024 12:19:54 estrogen, total, serum 2024 025 [facility] (Lab), [address] [place], [address], 12/08/2024 10:30:22 cortisol, serum or plasma 2024 025 [facility] (Lab), [address] [place], [address], 12/02/2024 12:19:53 TSH, serum or plasma 2024 025 [facility] (Lab), [address] [place], [address], 12/02/2024 12:19:59 T3, free, serum or plasma 2024 025 [facility] (Lab), [address] [place], [address], 12/02/2024 12:19:58 glycohemo globin, total, blood 2024 025 [facility] (Lab), [address] [place], [address], 12/08/2024 10:30:22 CMP, serum or plasma 2024 025 [facility] (Lab), [address] [place], [address], 12/02/2024 12:19:50 Referral None recorded. Procedures None recorded. Surgeries None recorded. Imaging MAMMO, diagnosti c, digital, bilateral - *Please call pt ot schedule* [email or web address] [place] [address] ([facility]), [address] [place], [address], 11/07/2023 09:11:43 US, breast, unilatera l - right breast lump, strong family h/o breast cancer *TO BE DONE WITH MAMMOGRAM * 2022 023 [email or web address] 56 [facility] ([facility]), [address], [place], [address], 11/07/2023 09:11:43 Medication Orders Balcoltra 0.1 mg-0.02 mg (21)/iron (7) tablet 2024 025 [facility] #88268, [address], [place], [place], [id number], 11/23/2024 15:28:42 alprazola m 1 mg tablet 2024 025 [facility] #25787, [address], [place], [place], [id number], 11/23/2024 15:32:20 Zepbound 2.5 mg/0.5 mL subcutane ous pen injector 2024 025 [email or web address] [facility] #28558, [address], [place], [place], [id number], 11/23/2024 15:02:51 Balcoltra 0.1 mg-0.02 mg (21)/iron (7) tablet 2024 025 [facility] #62468, [address], [place], [place], [id number], 08/24/2024 15:24:22 alprazola m 1 mg tablet 2024 025 [facility] #49387, [address], [place], [place], [id number], 08/24/2024 15:24:26 phentermi ne 30 mg capsule 2023 024 [email or web address] 77 [facility] #21078, [address], [place], [place], [id number], 08/24/2024 14:55:35 venlafaxi ne ER 150 mg capsule,e xtended release 24 hr 2023 [facility] #17140, [address], [place], [place], [id number], 05/05/2024 12:49:52 venlafaxi ne ER 75 mg capsule,e xtended release 24 hr 2023 [facility] #82680, [address] [place], [id number], 05/05/2024 13:00:51 alprazola m 0.5 mg tablet 2023 [email or web address] [facility] #81009, [address], [place], [place], [id number], 07/13/2024 08:34:27 Patient TargetsNo targets recorded. Patient InstructionsNo instructions recorded. Reason for Referral None Reported. Results Created Date Observation Date Name Description Value Unit Range Abnormal Flag Note LastModifiedBy Organization Detail LastModifiedTime 12/03/1912/02/2024 LIPID PANEL , STAND TIFFANY cholesterol, total 231 mg/dL <200 high Not Available [facility] [address], [address], 12/02/2024 12:19:49 12/03/1912/02/2024 LIPID PANEL , STAND TIFFANY HDL cholesterol 53 mg/dL > or = 50 normal Not Available [facility] [address] [place], [address], 12/02/2024 12:19:49 12/03/19 25 12/02/2024 LIPID PANEL , STAND TIFFANY triglyceride s 157 mg/dL <150 high Not Available [facility] [address], [address], 12/02/2024 12:19:49 12/03/19 25 12/02/2024 LIPID PANEL , STAND TIFFANY LDL-choleste rol 149 mg/dL _(nikunj c) high Refer ence range : <100 Sandro able range <100 mg/dL for prima ry preve ntion ; <70 mg/dL for patie nts with CHD or diabe tic patie nts with > or = 2 CHD risk facto rs. LDL-C is now calcu lated using the Lara n-Hop kins calcu latnhan n, which is a valid ated novel metho d provi ding candy r accur acy than the Fried brayan equat ion in the estim ation of LDL-C . Lara clay SS et al. BESSIE. 2013; 310(1 9): 2061- 2068 (http ://ed ucati on.[employer]. Zynga/f aq/FA Q164) Not Available [facility] [address] [place], [address], 12/02/2024 12:19:49 12/03/19 25 12/02/2024 LIPID PANEL , STAND TIFFANY chol/HDLC ratio 4.4 (calc ) <5.0 normal Not Available [facility] [address] [place], [address], 12/02/2024 12:19:49 12/03/1912/02/2024 LIPID PANEL , STAND TIFFANY non HDL cholesterol 178 mg/dL _(nikunj c) <130 high For patie nts with diabe raji plus 1 major ASCVD risk facto r, treat ing to a non-H DL-C goal of <100 mg/dL (LDL- C of <70 mg/dL ) is jasmyne pinedao n. Not Available [facility] [address] [place], [address], 12/02/2024 12:19:49 12/03/1912/02/2024 COMPR EHENS IVÁN METAB OLIC PANEL glucose 121 mg/dL 65-99 high Fasti ng refer ence inter mina For someo ne witho ut known diabe raji, a gluco se value betwe en 100 and 125 mg/dL is consi stent with predi abete s and shoul d be confi rmed with a follo w-up test. Not Available [place] [address] [place], [address], 12/02/2024 12:19:50 12/03/19 25 12/02/2024 COMPR EHENS IVÁN METAB OLIC PANEL urea nitrogen (BUN) 9 mg/dL 7-25 normal Not Available [facility] [address], [address], 12/02/2024 12:19:50 12/03/19 25 12/02/2024 COMPR EHENS IVÁN METAB OLIC PANEL creatinine 0.62 mg/dL 0.50-0 .97 normal Not Available [place] [address] [place], [address], 12/02/2024 12:19:50 12/03/19 25 12/02/2024 COMPR EHENS IVÁN METAB OLIC PANEL eGFR 119 mL/mi n/1.7 3m2 > or = 60 normal Not Available [place] [address] [place], [address], 12/02/2024 12:19:50 12/03/19 25 12/02/2024 COMPR EHENS IVÁN METAB OLIC PANEL BUN/creatini ne ratio SEE NOTE: (calc ) 6-22 Not Repor aundrea: BUN and Creat inine are withi n refer ence range . Not Available [facility] [address], [address], 12/02/2024 12:19:50 12/03/19 25 12/02/2024 COMPR EHENS IVÁN METAB OLIC PANEL sodium 137 mmol/ L 135-14 6 normal Not Available [facility] [place] [address] [place], [address], 12/02/2024 12:19:50 12/03/19 25 12/02/2024 COMPR EHENS IVÁN METAB OLIC PANEL potassium 4.4 mmol/ L 3.5-5. 3 normal Not Available [address], [address], 12/02/2024 12:19:50 12/03/19 25 12/02/2024 COMPR EHENS IVÁN METAB OLIC PANEL chloride 101 mmol/ L 98-110 normal Not Available [address], [address], 12/02/2024 12:19:50 12/03/19 25 12/02/2024 COMPR EHENS IVÁN METAB OLIC PANEL carbon dioxide 25 mmol/ L 20-32 normal Not Available [address], [address], 12/02/2024 12:19:50 12/03/19 25 12/02/2024 COMPR EHENS IVÁN METAB OLIC PANEL calcium 8.9 mg/dL 8.6-10 .2 normal Not Available [address], [address], 12/02/2024 12:19:50 12/03/19 25 12/02/2024 COMPR EHENS IVÁN METAB OLIC PANEL protein, total 6.9 g/dL 6.1-8. 1 normal Not Available [address], [address], 12/02/2024 12:19:50 12/03/19 25 12/02/2024 COMPR EHENS IVÁN METAB OLIC PANEL albumin 4.4 g/dL 3.6-5. 1 normal Not Available [address], [address], 12/02/2024 12:19:50 12/03/19 25 12/02/2024 COMPR EHENS IVÁN METAB OLIC PANEL globulin 2.5 g/dL_ (calc ) 1.9-3. 7 normal Not Available [address], [address], 12/02/2024 12:19:50 12/03/19 25 12/02/2024 COMPR EHENS IVÁN METAB OLIC PANEL albumin/glob ulin ratio 1.8 (calc ) 1.0-2. 5 normal Not Available [address], [address], 12/02/2024 12:19:50 12/03/19 25 12/02/2024 COMPR EHENS IVÁN METAB OLIC PANEL bilirubin, total 0.2 mg/dL 0.2-1. 2 normal Not Available [address], [address], 12/02/2024 12:19:50 12/03/19 25 12/02/2024 COMPR EHENS IVÁN METAB OLIC PANEL alkaline phosphatase 90 U/L 31-125 normal Not Available [address], [address], 12/02/2024 12:19:50 12/03/19 25 12/02/2024 COMPR EHENS IVÁN METAB OLIC PANEL AST 13 U/L 10-30 normal Not Available [address], [address], 12/02/2024 12:19:50 12/03/19 25 12/02/2024 COMPR EHENS IVÁN METAB OLIC PANEL ALT 12 U/L 6-29 normal Not Available [address], [address], 12/02/2024 12:19:50 12/03/19 25 12/02/2024 CBC (INCL UDES DIFF/ PLT) white blood cell count 6.2 thous and/u L 3.8-10 .8 normal Not Available [address], [address], 12/02/2024 12:19:52 12/03/19 25 12/02/2024 CBC (INCL UDES DIFF/ PLT) red blood cell count 4.64 fransisco on/uL 3.80-5 .10 normal Not Available [address], [address], 12/02/2024 12:19:52 12/03/19 25 12/02/2024 CBC (INCL UDES DIFF/ PLT) hemoglobin 13.0 g/dL 11.7-1 5.5 normal Not Available [address], [address], 12/02/2024 12:19:52 12/03/19 25 12/02/2024 CBC (INCL UDES DIFF/ PLT) hematocrit 40.8 % 35.0-4 5.0 normal Not Available [address], [address], 12/02/2024 12:19:52 12/03/19 25 12/02/2024 CBC (INCL UDES DIFF/ PLT) MCV 87.9 fL 80.0-1 00.0 normal Not Available [address], [address], 12/02/2024 12:19:52 12/03/19 25 12/02/2024 CBC (INCL UDES DIFF/ PLT) MCH 28.0 pg 27.0-3 3.0 normal Not Available [address], [address], 12/02/2024 12:19:52 12/03/1912/02/2024 CBC (INCL UDES DIFF/ PLT) MCHC 31.9 g/dL 32.0-3 6.0 low For adult s, a sligh t decre ase in the calcu lated MCHC value (in the range of 30 to 32 g/dL) is most likel y not clini giancarlo signi sabrina t; howev er, it shoul d be inter prete d with cauti on in virtua marlton n with other red cell walter eters and the patie nt's clini nikunj condi tion. Not Available [address], [address], 12/02/2024 12:19:52 12/03/19 25 12/02/2024 CBC (INCL UDES DIFF/ PLT) RDW 12.6 % 11.0-1 5.0 normal Not Available [address], [address], 12/02/2024 12:19:52 12/03/1912/02/2024 CBC (INCL UDES DIFF/ PLT) platelet count 526 thous and/u L 140-40 0 high Not Available [address], [address], 12/02/2024 12:19:52 12/03/19 25 12/02/2024 CBC (INCL UDES DIFF/ PLT) MPV 9.4 fL 7.5-12 .5 normal Not Available [address], [address], 12/02/2024 12:19:52 12/03/19 25 12/02/2024 CBC (INCL UDES DIFF/ PLT) absolute neutrophils 3367 cells /uL 1500-7 800 normal Not Available [address], [address], 12/02/2024 12:19:52 12/03/19 25 12/02/2024 CBC (INCL UDES DIFF/ PLT) absolute lymphocytes 2300 cells /uL 850-39 00 normal Not Available [address], [address], 12/02/2024 12:19:52 12/03/19 25 12/02/2024 CBC (INCL UDES DIFF/ PLT) absolute monocytes 248 cells /uL 200-95 0 normal Not Available [facility] [address], [address], 12/02/2024 12:19:52 12/03/19 25 12/02/2024 CBC (INCL UDES DIFF/ PLT) absolute eosinophils 217 cells /uL 15-500 normal Not Available [facility] [address], [address], 12/02/2024 12:19:52 12/03/19 25 12/02/2024 CBC (INCL UDES DIFF/ PLT) absolute basophils 68 cells /uL 0-200 normal Not Available [facility] [address], [address], 12/02/2024 12:19:52 12/03/19 25 12/02/2024 CBC (INCL UDES DIFF/ PLT) neutrophils 54.3 % normal Not Available [facility] [address], [address], 12/02/2024 12:19:52 12/03/19 25 12/02/2024 CBC (INCL UDES DIFF/ PLT) lymphocytes 37.1 % normal Not Available [facility] [address], [address], 12/02/2024 12:19:52 12/03/19 25 12/02/2024 CBC (INCL UDES DIFF/ PLT) monocytes 4.0 % normal Not Available [facility] [address], [address], 12/02/2024 12:19:52 12/03/19 25 12/02/2024 CBC (INCL UDES DIFF/ PLT) eosinophils 3.5 % normal Not Available [facility] [address], [address], 12/02/2024 12:19:52 12/03/19 25 12/02/2024 CBC (INCL UDES DIFF/ PLT) basophils 1.1 % normal Not Available [facility] [address] [place], [address], 12/02/2024 12:19:52 12/03/19 25 12/02/2024 CORTI JARED, TOTAL cortisol, total 7.5 mcg/d L normal Refer ence Range : For 8 a.m.( 7-9 a.m.) Speci men: 4.0-2 2.0 Refer ence Range : For 4 p.m.( 3-5 p.m.) Speci men: 3.0-1 7.0 * Pleas e inter pret above resul ts accor dingl y * Not Available [facility] [address] [place], [address], 12/02/2024 12:19:53 12/03/1912/02/2024 LH LH 11.8 mIU/m L normal Refer ence Range Folli cular Phase 1.9-1 2.5 Mid-C ycle Peak 8.7-7 6.3 Lutea l Phase 0.5-1 6.9 Postm enopa usal 10.0- 54.7 Not Available [facility] [address] [place] [address], [address], 12/02/2024 12:19:54 12/03/1912/02/2024 PROGE STERO NE progesterone 0.6 NG/mL normal Refer ence Range s Femal e Folli cular Phase < 1.0 Lutea l Phase 2.6-2 1.5 Post menop ausal < 0.5 Pregn magnus 1st Trime ster 4.1-3 4.0 2nd Trime ster 24.0- 76.0 3rd Trime ster 52.0- 302.0 Not Available [facility] [address] [place], [address], 12/02/2024 12:19:56 12/03/1912/02/2024 PROLA CTIN prolactin 5.7 NG/mL normal Refer ence Range Femal es Non-p regna nt 3.0-3 0.0 Pregn ant 10.0- 209.0 Postm enopa usal 2.0-2 0.0 Not Available [facility] [address] [place], [address], 12/02/2024 12:19:57 12/03/1912/02/2024 T3, FREE T3, free 3.3 pg/mL 2.3-4. 2 normal Not Available [facility] [address] [place], [address], 12/02/2024 12:19:58 12/03/1912/02/2024 TSH W/REF PERLITA TO FT4 TSH w/reflex to FT4 1.33 mIU/L normal Refer ence Range > or = 20 Years 0.40- 4.50 Pregn magnus Range s First trime ster 0.26- 2.66 Secon d trime ster 0.55- 2.73 Third trime ster 0.43- 2.91 Not Available [facility] [address] [place] [address], [address], 12/02/2024 12:19:59 12/03/1912/02/2024 HEMOG LOBIN A1C hemoglobin A1C 6.0 % <5.7 high For someo ne witho ut known diabe raji, a hemog lobin A1c value betwe en 5.7% and 6.4% is consi stent with predi abete s and shoul d be confi rmed with a follo w-up test. For someo ne with known diabe raji, a value <7% indic ates that their diabe raji is well contr olled . A1c targe ts shoul d be indiv idual ized based on durat ion of diabe raji, age, comor bid condi tions , and other consi derat ions. This assay resul t is consi stent with an incre ased risk of diabe raji. Curre ntly, no conse nsus exist s regar ding use of hemog lobin A1c for diagn osis of diabe raji for child michele. NO COLLE CTION DATE RECEI NICOLAS. WE HAVE USED THE DATE THE SPECI MEN WAS RECEI NICOLAS BY THIS LABOR ATORY THE COLLE CTION DATE. IF THIS IS INCOR RECT, PLEAS E CONTA CT CLIEN T SERVI OC. PHONE ZENAIDA R: 281.6 [phone] 78 Not Available [facility] [address] [place], [address], 12/02/2024 12:20:01 12/05/19 24 12/05/2023 US, breas t, bilat eral, limit ed [facility] [address] [place] [address] Patien t Name: ISABEL MCLEAN Access ion #: [id number] Sex: F : 1989 1 Dictat ed By: Joanna Douglas Attend ing Physic nancy: MORENO HUBER Orderi Physic nancy: MORENO HUBER Exam Date: 2023 10:01 AM Exam Name: US BREAST LIMITE D BILAT Admitt ing Diagno sis(es ): REASON FOR EXAM: lump in unspec ified breast COMPAR JOSE: TECHNI QUE:ML , spot compre ssion cranio caudal and modifi ed mediol ateral obliqu e views of the bilate ral breast are obtain ed utiliz ing digita l mammog raphic images obtain ed using a mammog raphic system . 3-D imagin g with tomosy nthesi s combin ed with 2-D imagin g were acquir ed. Target ed bilate ral breast ultras ound was perfor med. FINDIN GS: BREAST COMPOS ITION: The bilate ral breast s are hetero geneou sly dense, which may obscur e small masses . Spot compre ssion views demons trate masses in the bilate ral retroa reolar breast . Target ed ultras ound images of the breast demons trates a simple cyst in the right breast retroa reolar region at 9:00 measur ing 2.6 cm. There is a compli cated cyst in the left breast retroa reolar region at 12:00 measur ing 0.4 cm. There is a oval hypoec hoic mass in the left breast at 3:00 locate d 3 cm from the nipple measur ing 0.9 cm. There are benign -appea ring lymph nodes in the bilate ral axilla e. IMPRES LESLIE: 1. Oval hypoec hoic mass in the left breast at 3:00 and compli cated cyst in the left breast retroa reolar region are probab ly benign . 2. Simple cyst in the right breast correl ates with report ed palpab le abnorm ality and is benign . Page 1 [facility] [address] [place] [phone] Patien t Name: ISABEL MCLEAN EY Access ion #: [id number] Sex: F : 1989 1 Dictat ed By: Joanna Douglas Attend ing Physic nancy: BARBARA MARCELINO Physic nancy: MORENO HUBER Exam Date: 2023 10:01 AM Exam Name: US BREAST LIMITE D BILAT Admitt ing Diagno sis(es ): Recomm end target ed bilate ral breast ultras ound in 6 months . BIRADS : 3 - Probab ly Benign Electr onical ly Signed by: Joanna Douglas at 2023 10:42: 52 AM Page [email or web address] [facility] ([facility]) [address] [place], [place], [facility], 12/05/2023 16:11:20 12/05/19 24 12/05/2023 MAMMO , diagn ostic , tomos ynthe sis, bilat eral [facility] [address] [place] [address] [phone] Patien t Name: FERMIN MCLEANMamta EY Access ion #: [id number] Sex: F : 1989 1 Dictat ed By: Joanna Douglas Attend ing Physic nancy: MORENO HUBER Physic nancy: MORENO HUBER Exam Date: 2023 08:58 AM Exam Name: DIAG BREAST RUBENS BILAT Admitt ing Diagno sis(es ): REASON FOR EXAM: lump in unspec ified breast COMPAR JOSE: TECHNI QUE:ML , spot compre ssion cranio caudal and modifi ed mediol ateral obliqu e views of the bilate ral breast are obtain ed utiliz ing digita l mammog raphic images obtain ed using a mammog raphic system . 3-D imagin g with tomosy nthesi s combin ed with 2-D imagin g were acquir ed. Target ed bilate ral breast ultras ound was perfor med. FINDIN GS: BREAST COMPOS ITION: The bilate ral breast s are hetero geneou sly dense, which may obscur e small masses . Spot compre ssion views demons trate masses in the bilate ral retroa reolar breast . Target ed ultras ound images of the breast demons trates a simple cyst in the right breast retroa reolar region at 9:00 measur ing 2.6 cm. There is a compli cated cyst in the left breast retroa reolar region at 12:00 measur ing 0.4 cm. There is a oval hypoec hoic mass in the left breast at 3:00 locate d 3 cm from the nipple measur ing 0.9 cm. There are benign -appea ring lymph nodes in the bilate ral axilla e. IMPRES LESLIE: 1. Oval hypoec hoic mass in the left breast at 3:00 and compli cated cyst in the left breast retroa reolar region are probab ly benign . 2. Simple cyst in the right breast correl ates with report ed palpab le abnorm ality and is benign . Page 1 [facility] [address] [place] [address] Patien t Name: ISABEL MCLEAN DANIEL Access ion #: [id number] Sex: F : 1989 1 Dictat ed By: Joanna Douglas Attend ing Physic nancy: BARBARA MARCELINO Orderi ng Physic nancy: MORENO HUBER Exam Date: 2023 08:58 AM Exam Name: MG DIAG BREAST RUBENS BILAT Admitt ing Diagno sis(es ): Recomm end target ed bilate ral breast ultras ound in 6 months . BIRADS : 3 - Probab ly Benign Electr onical ly Signed by: Joanna Douglas at 2023 10:42: 52 AM Page [email or web address] [facility] ([facility]) [address] [place], [address], 12/09/2023 18:07:55 12/05/19 24 12/05/2023 MAMMO , diagn ostic , digit al, bilat eral No observ ation record ed. [email or web address] [facility] [address] [place], [address], 12/09/2023 18:07:55 12/05/19 24 12/05/2023 US, millie t, unila teral No observ ation record ed. [email or web address] [facility] [address] [place], [address], 12/09/2023 18:07:56 Result Notes None recorded. Problems Name Problem SNOMED Code Status Onset Date Resolution Date Notes Provider Name and Address Organization Details Recorded Time Irritable bowel syndrome 74274671 Active Not Available [facility] 3 09:28:37 Endometri osis (clinical ) 323450813 Active Not Available [facility] 3 09:28:37 Gastroeso phageal reflux disease 270517281 Active Not Available [facility] 3 09:28:37 Headache 46554441 Active Not Available [facility] 3 09:28:37 Low back pain 192172785 Completed Not Available [facility] 3 09:28:37 Pain in pelvis 62970999 Active Not Available [facility] 3 09:28:37 Depressiv e disorder 32219136 Active Not Available [facility] 3 09:28:37 Sprain of ankle 48884247 Completed Not Available [facility] 3 09:28:37 At high risk for malignant neoplasm of breast 69535908380 4102 Active 2020 Not Available [facility] 3 09:28:37 -induced hypertens ion 87502249 Active Not Available [facility] 3 09:28:37 Postpartu m depressio n 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 Not Available [facility] 3 09:28:37 Vulvitis 59361383 Active Not Available [facility] 3 09:28:37 Hemorrhoi ds 76540993 Active Not Available [facility] 3 09:28:37 Dyspareun ia 36196871 Active Not Available [facility] 3 09:28:37 Palpitati ons 25816977 Active Not Available [facility] 3 09:28:37 Mixed anxiety and depressiv e disorder 000527897 Active 2022 NADINE Navas [address], [place], [address] , [employer] [facility] [employer] 3 12:55:51 Anxiety 44551871 Active 2022 Tessie Short MD [address], [address], [place], [address] , [employer] [facility] [employer] 3 14:57:53 Hot sweats 310833579 Active 2022 NADINE Navas [address], [address], [place], [address] , [employer] 3 14:34:14 Breast lump 63241790 Active 2022 Tessie Short MD [address], [address], [place], [address] , [employer] [place] 3 11:49:03 Migraine 69661448 Active 2023 CHRIS Barnett [address], [place], [address] , [employer] [facility] [employer] 4 17:21:31 Mass of right breast 24964033554 121223 Active 2023 Tessie Short MD [address], [address] , [employer] [facility] [employer] 4 14:40:28 Lump in bilateral breasts 91912716648 567489 Active 2023 Tessie Short MD [address], [address] , [employer] 4 15:34:55 Menopausa l flushing 857136795 Active 2024 CHRIS Springer [address], [address] , [employer] [facility] [employer] 5 15:24:56 Abnormal weight gain 820020088 Active 2024 CHRIS Springer [address], [address] , [employer] 5 15:26:30 Prediabet es 220922950 Active 2024 CHRIS Springer [address], [address] , [employer] 5 15:00:36 Problem Notes None recorded. Procedures Surgical History Date Name Laterality Status Provider Name and Address Organization Details Recorded Time 3 Hysterectomy completed THUY Nagel [place] [employer] [facility] 11/23/2024 15:11:57 Imaging Results Imaging Date Name Status LastModified by Organiz [facility] Details LastModified Time 12/05/2023 US, breast, bilateral, limited completed [id number] [facility] (Imaging) [address] [place], [address], 12/05/2023 16:11:20 12/05/2023 MAMMO, diagnostic, tomosynthesis, bilateral completed [id number] [facility] (Imaging) [address] [place], [address], 12/09/2023 18:07:55 12/05/2023 MAMMO, diagnostic, digital, bilateral completed [id number] [facility] [address] [place], [address], 12/09/2023 18:07:55 12/05/2023 US, breast, unilateral completed [id number] [facility] [address] [place], [address], 12/09/2023 18:07:56 Procedure Notes None recorded. Medical Equipment None Reported. Allergies Allergen ID Allergen Name Allergen Category Reaction Reaction Severity Criticality Documentation Date Start Date Code Code System Note Provider Name and Address Organization Details [id number]|2024-12-09 11:06:00|2024-12-09 11:06:00|XMS_ITS|[facility]|External Medical Summaries|[id number]|" Encounter Summary Created on: December 09, 2024 Ling Cruz : 1990 Sex: Female Author Organization [facility] Address [address] [place] [address] Care Team Providers Care Agricultural Appraiser Name Role Phone Tessie Short MD Primary Care Provider [phone] Reason for Visit * Reason Onset Date Comments Patient Requested Call 07/15/2024 Encounter Details Date Type Department Care Team (Late st Contact Info) Description 07/15/2024 Telephone [facility] - NATIONAL INVESTIGATIVE PRODUCER [address] [facility] [address] [place] [address] Kelly French MD [address] [facility] [address] [place] [phone] Patient Requested Call Social History Tobacco Use Types Packs/Day Years [...] encounter Miscellaneous Notes * Telephone Encounter - Tiffanie Grey RN - 07/15/2024 2:08 PM CST Returned patient's call. She has been having abdominal pain and tenderness for the last week. She called her PCP and they instructed her to go to the ER ([facility]). They performed a CT scan and patient states it showed endometriosis and swollen lymph nodes. They instructed to go start on a bland diet and discharged her home. She has been trying Ibuprofen and Tylenol and very minimal relief. She describes this pain and tenderness similar to when she was recovering after her surgery. Informed Ling that I would send Dr. French and update and ask for recommendations. Will update patient after hearing from Dr. French OMS COMPLIANCE SPECIALIST * Telephone Encounter - Nyasia Baker - 07/15/2024 1:53 PM CST Pt called and stated she went to Er for abdominal and tender pain and she was diagnois with Lymphadenopethy and was told its from the edm they saw. She was told to do a blend diet but she wanted to know if the doctor has so different ideas cause she is in pain. [phone] OMS COMPLIANCE SPECIALIST documented in this encounter Plan of Treatment Not on file documented as of this encounter Visit Diagnoses Not on filedocumented in this encounter Care Teams Agricultural Appraiser Relationship Specialty Start Date End Date Tessie Short MD [address] [place] [address] [place] [phone] PCP - General Family Medicine 09/27/23 documented as of this encounter "
== END 2024-12-09 10:46 | disposition home or self-care (01) ==
PROVIDERS: PCP Nurse Practitioner Family; Visit Provider Nurse Practitioner Family
DX: R92.8 Other abnormal and inconclusive findings on diagnostic imaging of breast (principal)
CPT/HCPCS: 76641; 77062; 77066; G0279

== ENCOUNTER 2025-06-17 11:29 | Outpatient (CLI) | payer OTHER, SELFPAY ==
--- NOTE | ~2025-06-17 | US_ITS ---
EXAMINATION: US breast LT limited INDICATION: 35-year old female; BI-RADS 3, short-term follow-up probably benign left breast mass. COMPARISON: 12/09/2024 TECHNIQUE: Targeted sonographic evaluation of the Lateral LEFT breast was completed. FINDINGS: A 5.91 x 5.22 x 1.75 cm Hypoechoic circumscribed mass at 3:00, 4 cm FN location in the LEFT breast redemonstrated is unchanged. IMPRESSION: Probably benign Hypoechoic LEFT breast mass has demonstrated 6 months stability since initial evaluation on 12/09/2024. RECOMMENDATION: 6 month follow-up diagnostic BILATERAL mammogram and LEFT breast ultrasound. BI-RADS category 3, probably benign findings. Reviewed, dictated and finalized at location B. GER SERVICES IMPRESSION: Probably benign Hypoechoic LEFT breast mass has demonstrated 6 months stabilit y since initial evaluation on 12/09/2024. RECOMMENDATION: 6 month follow-up diagnostic BILATERAL mammogram and LEFT breas t ultrasound. BI-RADS category 3, probably benign findings.
--- OUTSIDE RECORDS SUMMARY | 2025-06-17 14:13 | XMS_ITS | Encounter Summary ---
Author Organization [facility] Address [address] [place] [address] Phone Care Team Providers Care Technical Artist Name Role Phone Tessie Short MD Primary Care Provider + Encounter Details Date Type Department Care Team (Late st Contact Info) Description 03/07/2020 Telephone [facility] Surgery [address] [place] [address] [facility] 5th [place] [address] [place] [address] Yue Jacobs Social History Tobacco Use Types Packs/Day Years Used Date Smoking Tobacco: Former Cigarettes Q uit: 07/2018 Smokeless Tobacco: Never Alcohol Use Standard Drinks/Week Comments Not Currently 0 (1 standard drink = 0.6 oz pur e alcohol) Comments No Sex and Gender Information Value Date Recorded Sex Assigned at Not on file Legal Sex Female 10:[address] TEAM MEMBER Gender Identity Not on file Sexual Orientation Not on file documented as of this encounter Plan of Treatment Not on file documented as of this encounter Visit Diagnoses Not on filedocumented in this encounter Care Teams Technical Artist Relationship Specialty Start Date End Date Tessie Short MD PCP - General 04/03/18 documented as of this encounter
--- OUTSIDE RECORDS SUMMARY | 2025-06-17 14:13 | XMS_ITS | Encounter Summary ---
Author Organization [facility] Address [address] [place] [address] Phone Care Team Providers Care Film Technician Name Role Phone Tessie Short MD Primary Care Provider + Encounter Details Date Type Department Care Team (Late st Contact Info) Description 02/29/2020 Telephone [facility] Surgery [address] [place] [address] [facility] 5th [place] [address] [place] [address] Yue Jacobs Social History Tobacco Use Types Packs/Day Years Used Date Smoking Tobacco: Former Cigarettes Q uit: 07/2018 Smokeless Tobacco: Never Alcohol Use Standard Drinks/Week Comments Not Currently 0 (1 standard drink = 0.6 oz pur e alcohol) Comments No Sex and Gender Information Value Date Recorded Sex Assigned at Not on file 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
--- OUTSIDE RECORDS SUMMARY | 2025-06-17 14:13 | XMS_ITS | Clinical Summary ---
Author Organization [facility] Address [address] [place] [address] Care Team Providers Care Lawn Service Worker Name Role Phone Tessie Short MD [...] - Diagnosed with endometriosis in 2008 at [facility] by Dx lsc and treated with course of Lupron - MRI Pelvis 2016: No pelvic endo seen, small para-ovarian cyst and ?cervical adenomyoma - Presenting with severe dysmenorrhea, dyspareunia, and dyschezia since 2019 and getting worse - Reports US with primary ENVELOPE ADDRESSER showing chocolate cyst on right ovary, referred to [facility] given anticipated surgical complexity and insurance change [...] vaginal icing - Request outside records from: [facility] (op note), Dr. 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 Gender Identity Not on file Sexual Orientation [...] 10:14 AM CDT Height 162.6 cm (5' 4) 10/26/2022 10:14 AM CDT Body Mass Index 33.3 10/26/2022 10:14 AM CDT Plan of Treatment Health Maintenance Due Date Last Done Comments Cervical Cancer Screening 1990 Depression Screening 1990 Hepatitis C Screening 1990 DTaP/Tdap/Td Vaccine (1 - Tdap) 02/09/2000 Varicella Vaccines (1 of 2 - 13+ 2-dose series) 2002 Hepatitis B Screening 2007 Regular Well Visit/Exam 18-64 2007 HPV Vaccines (1 - 3-dose SCD M series) 02/09/2016 Influenza Vaccine (#1) 2025 6, 05/29/2016, 08/13/2014 Pneumococcal vaccine <65 Aged Out No longer eligible based on patient's age to complete this topic Insurance [facility] [employer] OPEN [employer] [address] Care Teams Lawn Service Worker Relationship Specialty Start Date End Date Tessie Short MD PCP - General 04/03/18
== END 2025-06-17 11:30 | disposition home or self-care (01) ==
LOC: ANHFOHIMG 11:31
PROVIDERS: PCP Nurse Practitioner Family; Visit Provider Nurse Practitioner Family
DX: N63.10 Unspecified lump in the right breast, unspecified quadrant (principal); N60.02 Solitary cyst of left breast; R92.8 Other abnormal and inconclusive findings on diagnostic imaging of breast
CPT/HCPCS: 76642